=== PATIENT | male | born 1985 | race Caucasian/White ===

== ENCOUNTER 2017-06-09 18:09 | Emergency (ER) | payer MEDICAID ==
[~2017-06-09] VITALS: Ht 167.6 cm; Wt 75.0 kg
[2017-06-09] MEDS ORDERED: BACITRACIN 0.9 GM PACKET OINTMENT TP ONE (18:45)
[2017-06-09] MEDS ORDERED: LIDOCAINE HCL/PF 1% 30 ML VIAL INJ ONE (18:45)
[2017-06-09] MEDS ORDERED: POVIDONE-IODINE 10% 15 ML SOLUTION UD TP ONE (18:45)
[2017-06-09 20:08] VITALS: BP 125/70
== END 2017-06-09 20:22 | disposition home or self-care (01) ==
LOC: EMS 18:09 → EDBD 18:09 → EMS 20:22
DX: S61.412A Laceration without foreign body of left hand, initial encounter (principal); Z88.0 Allergy status to penicillin; W45.8XXA Other foreign body or object entering through skin, initial encounter; Y93.89 Activity, other specified; Y92.89 Other specified places as the place of occurrence of the external cause; Y99.8 Other external cause status
CPT/HCPCS: 12005; 73130; 99284; J3490